=== PATIENT | male | born 1985 | race Caucasian/White ===

== ENCOUNTER 2018-01-30 15:16 | Emergency (ER) | payer OTHER, SELFPAY ==
[2018-01-30 15:18] VITALS: BP 124/80; PULSE 81; RESP 15; TEMP 37.2; O2SAT 99; BMI 24.3
[2018-01-30 15:50] LABS: Influenza A and B by PCR Rapid Negative (Negative)
--- NOTE | 2018-01-30 16:40 | ED.FEVER ---
HPI - Fever General Chief Complaint: Fever Stated Complaint: FEVER JOINT PAIN NECK AND SKULL PAIN Time Seen by Provider: 01/30/18 16:40 Source: patient Mode of arrival: ambulatory Limitations: no limitations History of Present Illness HPI Narrative: 33-year-old male nonsmoker presents with a chief complaint of a fever for about the past week. He states his temperature has been as high as 101 and tends to respond to Tylenol or Motrin. Patient denies runny nose, sore throat or cough. He has no chest pain or shortness of breath. He denies any abdominal pain or nausea, vomiting or diarrhea. He has no dysuria, frequency or urgency. He does admit to some body aches and a mild headache but denies any significant neck pain. He has had no recent travel denies any injury and has not been exposed to sick persons. Patient states he routinely drinks 8-10 quarts of water daily MD complaint: fever Onset (ago): day(s) Maximum Temperature: 101 F Temperature Source: tympanic Associated symptoms: myalgias and headache Relieving factors: acetaminophen and ibuprofen Exacerbating factors: nothing Treatments prior to arrival fever: acetaminophen and ibuprofen Related Data Home Medications Medication Instructions Recorded Confirmed cod liver oil 1 cap PO DAILY 01/30/18 01/30/18 multivitamin 1 tab PO DAILY 01/30/18 01/30/18 Allergies Allergy/AdvReac Type Severity Reaction Status Date / Time No Known Drug Allergies Allergy Verified 01/30/18 15:18 Review of Systems Review of Systems All systems reviewed & are unremarkable except as noted in HPI and below Constitutional Reports body ache(s), Reports chills, Reports fever(s), Reports headache(s), Denies lethargy and Denies weakness Eyes Denies change in vision, Denies eye discharge, Denies irritation and Denies loss of vision ENT Ears, Nose, Mouth, and Throat: Denies change in voice, Reports headache(s), Denies neck pain and Denies sore throat Cardiovascular Denies chest pain, Denies irregular heart rhythm, Denies lightheadedness, Denies palpitations, Denies dyspnea, Denies dyspnea on exertion and Denies orthopnea Respiratory Denies cough, Denies dyspnea, Denies dyspnea on exertion and Denies wheezing Gastrointestinal Gastrointestinal: Denies abdominal pain, Denies change in bowel habits, Denies diarrhea, Denies nausea and Denies vomiting Genitourinary Denies hematuria, Denies flank pain, Denies urinary incontinence and Denies urinary urgency Musculoskeletal Denies neck pain Integumentary/Breasts Denies pruritus, Denies erythema, Denies rash and Denies wounds Neurologic Denies confusion, Reports headache(s), Denies loss of vision and Denies weakness Psychiatric Denies anxiety, Denies confusion, Denies depression, Denies homicidal ideation and Denies suicidal ideation Endocrine Denies palpitations Hematologic/Lymphatic Denies easy bruising Allergic/Immunologic Denies wheezing [facility] Social History Smoking Status: Never smoker Exam Narrative Exam Narrative: GENERAL: This is a well-nourished, well-developed patient, in mild distress. HEAD: Atraumatic. Normocephalic. No temporal or scalp tenderness. EYES: Pupils equal round and reactive. Extraocular motions intact. No scleral icterus. No injection or drainage. ENT: Nose without bleeding, purulent drainage or septal hematoma. Throat without erythema, tonsillar hypertrophy or exudate. Uvula midline. Airway patent. NECK: Trachea midline. No JVD or lymphadenopathy. Supple, nontender, no meningeal signs. Negative Kernig's and Brudzinski's CARDIOVASCULAR: Regular rate and rhythm without murmurs, gallops, or rubs. RESPIRATORY: Clear to auscultation. Breath sounds equal bilaterally. No wheezes, rales, or rhonchi. GASTROINTESTINAL: Abdomen soft, non-tender, nondistended. No hepato-splenomegaly, or palpable masses. No guarding. EXTREMITIES: No clubbing, cyanosis, or edema. No joint tenderness, effusion, or edema noted. BACK: Nontender without deformity or crepitance. No flank tenderness. NEURO: AOx3. SKIN: No rash or erythema. Initial Vital Signs Initial Vital Signs: Vital Signs Temperature 98.9 F 01/30/18 15:18 Pulse Rate 81 01/30/18 15:18 Respiratory Rate 15 01/30/18 15:18 Blood Pressure 124/80 01/30/18 15:18 Pulse Oximetry 99 01/30/18 15:18 Course Orders Ordered: ED Orders 01/30/18 15:23 Influenza A and B by PCR Rapid Stat 01/30/18 17:20 Blood Culture Stat 01/30/18 17:30 Basic Metabolic Panel Stat Complete Blood Count AUTO DIFF Stat Lactate (Lactic Acid) Stat Procalcitonin Stat 01/30/18 17:32 Urine Microscopic Stat Discontinued Medications Sodium Chloride (Normal Saline 0.9%) 1,000 mls @ 1,000 mls/hr IV BOLUS ONE Stop: 01/30/18 18:19 Last Infusion: 01/30/18 18:40 Dose: 0 mls/hr Admin: 01/30/18 17:38 Dose: 1,000 mls/hr Ketorolac Tromethamine (Toradol) 15 mg IV NOW ONE Stop: 01/30/18 17:21 Last Admin: 01/30/18 17:37 Dose: 15 mg Reevaluation(s) Reevaluation #1: Had a lengthy discussion with the patient at the bedside and he states very clearly that his concerns are of a ruptured appendicitis, leukemia, and meningitis. I discussed the appendicitis with him and stated that it would be unlikely given his strong appetite and lack of abdominal pain. We discussed leukemia and our attempt to address this concern with blood work, which is reasonable given his fever of unknown origin. I discussed meningitis with him and stated lack of a consistent headache, neck pain, meningeal signs that my suspicion was low but offered a lumbar puncture. We discussed risk benefits and the patient refused at this point time stating he would prefer to avoid it and understands the risk of not performing this procedure. Vital Signs - 8 hr 01/30/18 15:18 01/30/18 18:49 Temperature 98.9 F Pulse Rate 81 86 Respiratory Rate 15 17 Blood Pressure 124/80 Blood Pressure [Right Arm] 110/68 Pulse Oximetry 99 97 MDM - Fever Differential Diagnosis Likely cellulitis, fever of unknown origin, community acquired pneumonia, pyelonephritis, viral infection, sepsis and influenza Medical Records Attestation: I reviewed the patient's medical records. Lab Data Attestation: I reviewed the patient's lab results. Result diagrams: 01/30/18 17:30 01/30/18 17:30 Lab Results 01/30/18 01/30/18 01/30/18 Range/Units 15:23 17:30 17:30 WBC 5.3 (4.5-11.0) X10^3/uL RBC 4.95 (4.5-5.9) X10^6/uL Hgb 15.5 (13.5-17.5) g/dL Hct 43.0 (41-53) % MCV 87.0 (80-100) fL MCH 31.3 (26-34) PG MCHC 35.9 (30-36) % RDW 12.3 (11.6-14.8) % Plt Count 104 L (150-400) X10^3/uL Neut % (Auto) 62.6 (50-75) % Lymph % (Auto) 23.2 L (25-40) % Sunflower % (Auto) 13.3 (3-14) % Eos % (Auto) 0.5 L (2-4) % Baso % (Auto) 0.4 (0-2) % Neut # (Auto) 3300 (0490-4211) /uL Sodium (137-145) mmol/L Potassium (3.4-5.1) mmol/L Chloride (98-107) mmol/L Carbon Dioxide (22-32) mmol/L BUN (9-20) mg/dL Creatinine (0.66-1.25) mg/dL Estimated GFR (>60) mL/min BUN/Creatinine Ratio (6-22) Glucose (70-100) mg/dL Lactate (0.7-2.1) mmol/L Calcium (8.4-10.2) mg/dL Procalcitonin 0.48 (<0.5) ng/mL Urine RBC (0-5/HPF) Urine WBC (0-5/HPF) Ur Squamous Epith Cells Urine Bacteria (None) Ur Culture Indicated? Micro UA Comment Influenza A & B (PCR) Negative (Negative) 01/30/18 01/30/18 01/30/18 Range/Units 17:30 17:30 17:32 WBC (4.5-11.0) X10^3/uL RBC (4.5-5.9) X10^6/uL Hgb (13.5-17.5) g/dL Hct (41-53) % MCV (80-100) fL MCH (26-34) PG MCHC (30-36) % RDW (11.6-14.8) % Plt Count (150-400) X10^3/uL Neut % (Auto) (50-75) % Lymph % (Auto) (25-40) % Sunflower % (Auto) (3-14) % Eos % (Auto) (2-4) % Baso % (Auto) (0-2) % Neut # (Auto) (4823-4650) /uL Sodium 126 L (137-145) mmol/L Potassium 3.8 (3.4-5.1) mmol/L Chloride 88 L (98-107) mmol/L Carbon Dioxide 25 (22-32) mmol/L BUN 9 (9-20) mg/dL Creatinine 0.90 (0.66-1.25) mg/dL Estimated GFR > 60.0 (>60) mL/min BUN/Creatinine Ratio 10.0 (6-22) Glucose 88 (70-100) mg/dL Lactate 0.8 (0.7-2.1) mmol/L Calcium 8.6 (8.4-10.2) mg/dL Procalcitonin (<0.5) ng/mL Urine RBC None seen (0-5/HPF) Urine WBC 0-1/hpf (0-5/HPF) Ur Squamous Epith Cells 0-1 /hpf Urine Bacteria None seen (None) Ur Culture Indicated? Cult not indicated Micro UA Comment Not Reportable Influenza A & B (PCR) (Negative) Urine Dip Bedside Urine Glucose Negative Bedside Urine Bilirubin - Negative Bedside Urine Ketone +++ 80 Urine Specific Liberal 1.015 Bedside Urine Occult Blood - Negative Bedside Urine pH 6.0 Bedside Urine Protein - Negative Bedside Urine Urobilinogen - Negative Bedside Urine Nitrite - Negative Bedside Urine Leukocytes - Negative Esterase MDM Narrative Medical decision making narrative: Meningitis considered but thought less likely given lack of neck pain, lack of consistent headache and lack of other meningeal signs such is Kernig's and Brudzinski sign. We did discuss the possibility of a lumbar puncture but the patient refused at this point time understanding the risks and benefits of doing so Other infectious causes such as pneumonia, strep pharyngitis, flu, urinary tract infection or pyelonephritis considered but thought much less likely given lack of laboratory evidence Patient is hyponatremic but does not demonstrate symptoms consistent with hyponatremia such is weakness, dizziness, lightheadedness or other. The patient routinely drinks a significant amount of water and there was extensive discussion regarding the likelihood of this contributing to his hyponatremia. Discharge Plan Departure Patient Disposition: Home Clinical Impression: Acute febrile illness Discharge Date/Time: 01/30/18 18:56 Interventions: ED Discharge Assessment Last Done: 01/30/18 18:56 Instructions: DI for Viral Syndrome, DI for Fever (Symptom) -- Adult Activity Restrictions/Additional Instructions: *You have been diagnosed with [ febrile illness likely due to viral syndrome ] *What to do: *Take medications as directed: Tylenol or Motrin for aches, pains and fever *Follow up with your primary care provider in 2-3 days, call for an appointment. Let them know you were seen in the Emergency Department and that we ask that you be seen in follow up *Return to ER if you should have any new, worsening or concerning symptoms Prescriptions: No Action cod liver oil Capsule 1 cap PO DAILY RF: 0 multivitamin 1 tab PO DAILY RF: 0 Referrals: Alex Delatorre MD [Physician] - Nadja Tabor MD [Physician] -
--- NOTE | 2018-01-30 16:41 | PC.NURSE ---
States no other symptoms but fever. Denies urinary sx, cough, cold sx or N/V/D. Flu swab done in triage is neg
[2018-01-30] MEDS: KETOROLAC 60 MG/2 ML VIAL 15 MG IV (17:37)
[2018-01-30] MEDS: SODIUM CHLORIDE 0.9% 1,000 ML 1000 ML IV (17:38)
[2018-01-30 17:44] LABS: Add Manual Diff / Slide Review NO; Hemoglobin 15.5 g/dL (13.5-17.5); Neutrophils Percent Auto 62.6 % (50-75)
[2018-01-30 17:52] LABS: Blood Urea Nitrogen 9 mg/dL (9-20); Calcium 8.6 mg/dL (8.4-10.2); Carbon Dioxide 25 mmol/L (22-32); Chloride 88 mmol/L (98-107); Estimated Glomerular Filt Rate > 60.0 mL/min (>60); Glucose 88 mg/dL (70-100); HEMOLYSIS < 15 (0-50); Potassium 3.8 mmol/L (3.4-5.1); Sodium 126 mmol/L (137-145)
[2018-01-30 17:53] LABS: Basophils Percent Auto 0.4 % (0-2); Eosinophils Percent Auto 0.5 % (2-4); Lymphocytes Percent Auto 23.2 % (25-40); Mean Corpuscular HGB Conc 35.9 % (30-36); Mean Corpuscular Hemoglobin 31.3 PG (26-34); Monocytes Percent Auto 13.3 % (3-14); Neutrophils Absolute Auto 3300 /uL (3000-5900); Red Blood Cell Count 4.95 X10^6/uL (4.5-5.9); Red Cell Distribution Width 12.3 % (11.6-14.8); White Blood Cell Count 5.3 X10^3/uL (4.5-11.0)
[2018-01-30 17:54] LABS: Lactate (Lactic Acid) 0.8 mmol/L (0.7-2.1); Platelet Count 104 X10^3/uL (150-400)
[2018-01-30 18:09] LABS: Bacteria Urine None Seen; RBC Urine None Seen (0-5/HPF)
[2018-01-30 18:16] LABS: Procalcitonin 0.48 ng/mL (<0.5)
[2018-01-30 18:24] LABS: Culture Indicated Urine Cult Not Indicated; Squamous Epithelial Cell Urine 0-1 /HPF; WBC Urine 0-1/HPF (0-5/HPF)
[2018-01-30 18:49] VITALS: BP 110/68; PULSE 86; RESP 17; O2SAT 97
== END 2018-01-30 18:56 | disposition home or self-care (01) ==
PROVIDERS: Emergency Provider Emergency Medicine
DX: R50.9 Fever, unspecified (principal)
CPT/HCPCS: 36415; 36591; 80048; 81003; 81015; 83605; 84145; 85025; 87040; 87400; 96361; 96374; 99283; 99284; J1885